=== PATIENT | male | born 1970 | race Caucasian/White ===

== ENCOUNTER 2018-12-29 14:09 | Outpatient (CLI) | payer OTHER | END 2018-12-29 14:17 | disposition home or self-care (01) | LOC: SONOGRAMA 14:09 | DX: N40.0 Benign prostatic hyperplasia without lower urinary tract symptoms (principal); I16.1 Hypertensive emergency ==

== ENCOUNTER 2019-01-09 10:53 | Outpatient (CLI) | payer OTHER | END 2019-01-09 17:00 | disposition home or self-care (01) | LOC: RAD 10:53 | DX: M25.512 Pain in left shoulder (principal) ==